=== PATIENT | female | born 2000 | race Two or more races ===

== ENCOUNTER 2021-09-01 21:27 | Emergency (ER) | payer MEDICAID, OTHER ==
[~2021-09-01] VITALS: Ht 160 cm; Wt 54.4 kg
[2021-09-02] MEDS ORDERED: ALBUAER3 IN (02:33)
[2021-09-02] MEDS ORDERED: IBUP800T27 PO (02:33)
[2021-09-02] MEDS ORDERED: GUAI600T23 PO (02:33)
[2021-09-02 05:59] VITALS: BP 99/62
== END 2021-09-02 06:03 | disposition home or self-care (01) ==
LOC: EDBD 21:29 → ER 21:29
DX: U07.1 COVID-19 (principal)
CPT/HCPCS: 36415; 87426